=== PATIENT | female | born 1945 | race Caucasian/White ===

== ENCOUNTER 2016-09-03 16:17 | Inpatient (IN) | payer MEDICARE, BC ==
[2016-09-22] MEDS ORDERED: REPATHA SQ (13:30)
[2016-09-22] MEDS ORDERED: PRAVACHOL20 MG PO (13:30)
[2016-09-22] MEDS ORDERED: LEXAPRO DPS10 MG PO (13:30)
[2016-09-22] MEDS ORDERED: ASPIRIN EC81 MG PO (13:31)
[2016-09-22] MEDS ORDERED: XARELTO10 MG PO (13:31)
[2016-09-22] MEDS ORDERED: ZESTRIL DPS2.5 MG PO (13:31)
[2016-09-22] MEDS ORDERED: VITAMIN D1000 UNI1 PO (13:31)
[2016-09-22] MEDS ORDERED: OCEAN NASAL MIS45 ML NS (13:31)
[2016-09-22] MEDS ORDERED: TYLENOL DPS325 MG PO (13:32)
[2016-09-22] MEDS ORDERED: FEOSOL-DPS325 MG PO (13:32)
[2016-09-22] MEDS ORDERED: ASCORBIC ACID500 MG PO (13:32)
[2016-09-22] MEDS ORDERED: ULTRAM DPS50 MG PO (13:33)
== END 2016-09-20 13:20 | disposition home health service (06) | DRG 560 ==
DX: S72.001D Fracture of unspecified part of neck of right femur, subsequent encounter for closed fracture with routine healing (principal); D62 Acute posthemorrhagic anemia; D69.6 Thrombocytopenia, unspecified; G89.18 Other acute postprocedural pain; G47.00 Insomnia, unspecified; E87.6 Hypokalemia; J02.9 Acute pharyngitis, unspecified; E83.39 Other disorders of phosphorus metabolism; E61.1 Iron deficiency; K59.00 Constipation, unspecified; F41.9 Anxiety disorder, unspecified; F32.9 Major depressive disorder, single episode, unspecified; E55.9 Vitamin D deficiency, unspecified; E78.5 Hyperlipidemia, unspecified; I10 Essential (primary) hypertension; I25.10 Atherosclerotic heart disease of native coronary artery without angina pectoris; Z96.641 Presence of right artificial hip joint; Z95.1 Presence of aortocoronary bypass graft; Z23 Encounter for immunization